=== PATIENT | female | born 1980 | race Caucasian/White ===

== ENCOUNTER 2020-08-27 13:35 | Outpatient (CLI) | payer OTHER | END 2020-08-27 13:40 | disposition home or self-care (01) | LOC: SONOGRAMA 13:35 | DX: N83.292 Other ovarian cyst, left side (principal); N83.02 Follicular cyst of left ovary; N94.89 Other specified conditions associated with female genital organs and menstrual cycle; N92.0 Excessive and frequent menstruation with regular cycle ==

== ENCOUNTER → 2021-03-15 | Outpatient (CLI) | payer OTHER | END | disposition home or self-care (01) | LOC: SONOGRAMA 10:10 | PROVIDERS: ATTEND Internal Medicine Endocrinology, Diabetes & Metabolism | DX: E04.8 Other specified nontoxic goiter (principal) ==

== ENCOUNTER 2021-09-02 17:05 | Emergency (ER) | payer OTHER ==
[~2021-09-02] VITALS: Ht 170.2 cm; Wt 65.8 kg
[2021-09-02] MEDS ORDERED: SYNTHROID (17:59)
[2021-09-02] MEDS ORDERED: DICLOFENAC SODI75 MG PO (19:08)
[2021-09-02] MEDS ORDERED: NORFLEX100MG PO (19:08)
== END 2021-09-02 19:21 | disposition home or self-care (01) ==
LOC: ER 17:05
DX: J02.9 Acute pharyngitis, unspecified (principal)

== ENCOUNTER → 2022-01-17 | Outpatient (CLI) | payer OTHER ==
[~2022-01-17] MED LIST: DICLOFENAC SODI75 MG PO; NORFLEX100MG PO; SYNTHROID
== END | disposition home or self-care (01) ==
LOC: SONOGRAMA 09:24
DX: E06.9 Thyroiditis, unspecified (principal); E04.1 Nontoxic single thyroid nodule

== ENCOUNTER → 2022-06-29 | Emergency (ER) | payer OTHER ==
[~2022-06-29] VITALS: Ht 170.2 cm; Wt 68.0 kg
[~2022-06-29] MED LIST changes: +LEVO-T25 MCG PO
== END | disposition left against medical advice (07) ==
LOC: ER 10:44
DX: O26.891 Other specified pregnancy related conditions, first trimester (principal); R09.82 Postnasal drip; Z3A.14 14 weeks gestation of pregnancy

== ENCOUNTER 2024-10-15 15:08 | Outpatient (CLI) | payer OTHER | END 2024-10-15 15:15 | disposition home or self-care (01) | LOC: SONOGRAMA 15:08 | PROVIDERS: ATTEND Internal Medicine Endocrinology, Diabetes & Metabolism | DX: E04.8 Other specified nontoxic goiter (principal) ==